=== PATIENT | male | born 1980 | race African-American/Black ===

== ENCOUNTER 2016-08-24 10:22 | Emergency (ER) | payer OTHER ==
[2016-08-24 10:42] VITALS: BP 143/98; PULSE 93; TEMP 98.2; BMI 34.4
[2016-08-24] MEDS ORDERED: ALBUTEROL SO4 6.7 GM HFA INHALER IH PRN (10:50)
--- NOTE | 2016-08-24 10:52 | PDOC ---
History of Present Illness - General Chief Complaint: Asthma Stated Complaint: ASTHMA, SOB Time Seen by Provider: 08/24/16 10:46 History Source: Patient Exam Limitations: No Limitations - History of Present Illness Initial Comments: CHIEF COMPLAINT: 36 y/o afebrile male with PMH asthma c/o chest tightness since last night. HISTORY OF PRESENT ILLNESS: He states this is always what he feels when his asthma is starting. He ran out of his albuterol inhaler and that's what he's here for. He states last night he was wheezing and that prevented him from sleeping. He denies f/c, n/v/d, cough, runny nose, SOB, abd pain, back pain. PCP is Dr. Maria Vital signs on arrival are notable for pulse of 93. REVIEW OF SYSTEMS: GENERAL/CONSTITUTIONAL: No fever/chills. No weakness. No weight change. HEAD, EYES, EARS, NOSE AND THROAT: No change in vision. No ear pain or discharge. No sore throat. CARDIOVASCULAR: +chest tightness. No shortness of breath. RESPIRATORY: +wheezing. No cough or hemoptysis. GASTROINTESTINAL: See history of present illness. GENITOURINARY: No dysuria, frequency, or change in urination. MUSCULOSKELETAL: No joint or muscle swelling or pain. No neck or back pain. SKIN: No rash or easy bruising. NEUROLOGIC: No headache, vertigo, loss of consciousness, or loss of sensation. PHYSICAL EXAM: GENERAL: The patient is awake, alert, and fully oriented, in no acute distress. He is very well appearing, ambulatory, speaks full sentences without difficulty. HEAD: Normal with no signs of trauma. ENT: Pupils equal, round and reactive to light, extraocular movements intact, sclera anicteric, conjunctiva clear. Neck supple. LUNGS: Clear to auscultation bilaterally. Normal excursion. No respiratory distress or use of accessory muscles. CV: RRR, S1/S2, no MRG. Cap refill < 2 sec. ABDOMEN: Soft, non-distended, non-tender even to deep palpation, no hepatomegaly or splenomegaly, no masses. EXTREMITIES: Normal range of motion, no edema. NEUROLOGICAL: Normal speech, normal gait. CN II-XII grossly intact. PSYCH: Normal mood, normal affect. SKIN: Warm, dry, normal turgor, no rashes or lesions noted. Past History - Past Medical History Allergies/Adverse Reactions: Allergies Allergy/AdvReac Type Severity Reaction Status Date / Time egg Allergy Verified 08/24/16 10:37 Home Medications: Ambulatory Orders Albuterol Sulfate Inhaler - [Ventolin HFA Inhaler -] 2 inh PO Q4H #1 inh Albuterol Sulfate Inhaler - [Ventolin HFA Inhaler -] 2 inh PO Q4H #1 inh Anemia: No Asthma: Yes Cancer: No Cardiac Disorders: No CVA: No COPD: No DVT: No Dementia: No Diabetes: No Dialysis: No GI Disorders: No Disorders: No HTN: No Hypercholesterolemia: No HIV: No Kidney Stones: No Liver Disease: No Psychiatric Problems: No Seizures: No Thyroid Disease: No Lung CA: No - Surgical History Abdominal Surgery: No Appendectomy: No Cardiac Surgery: No Cholecystectomy: No Gastric Stapling: No GI Surgery: No Lung Surgery: No Neurologic Surgery: No - Immunization History Td Vaccination: Yes TDAP Vaccination: No Immunization Up to Date: Yes - Psycho/Social/Smoking Cessation Hx Anxiety: No Suicidal Ideation: No Smoking Status: No Smoking History: Never smoked Years of Tobacco Use: 0 Have you smoked in the past 12 months: No Number of Cigarettes Smoked Daily: 0 If you are a former smoker, when did you quit?: 12 Cigars Per Day: 0 Information on smoking cessation initiated: No Hx Alcohol Use: No Drug/Substance Use Hx: No Substance Use Type: None Hx Substance Use Treatment: No Respiratory Specific PMHX - Complaint Specific PMHX Angina: No Bronchitis: No Pneumonia: No Pulmonary Embolus: No TB (Tuberculosis): No *Physical Exam - Vital Signs Last Vital Signs Temp Pulse Resp BP Pulse Ox 98.2 F 93 H 18 143/98 97 08/24/16 10:35 08/24/16 10:35 08/24/16 10:35 08/24/16 10:35 08/24/16 10:35 Medical Decision Making - Medical Decision Making A/P: 36 y/o male here for an albuterol inhaler. Will provide one from the pharmacy and d/c with an rx for one as well. Pt instructed to return to the ER with any worsening or concerning symptoms. The patient verbalizes understanding of all instructions, has no further questions and is awaiting discharge. *DC/Admit/Observation/Transfer Diagnosis at time of Disposition: Asthma Qualifiers: Asthma severity: unspecified severity Asthma complication type: with acute exacerbation Qualified Code(s): J45.901 - Unspecified asthma with (acute) exacerbation - Discharge Dispostion Disposition: HOME Condition at time of disposition: Good - Patient Instructions Printed Discharge Instructions: Asthma -- Adult Additional Instructions: Discharge Instructions: -A prescription for an additional albuterol inhaler has been sent to your pharmacy -Please follow up with Dr. Maria within 1 week -Return to the ER with any worsening or concerning symptoms
== END 2016-08-24 11:12 | disposition home or self-care (01) ==
LOC: JERFT 10:22
PROC: 3E0F7GC Introduction of Other Therapeutic Substance into Respiratory Tract, Via Natural or Artificial Opening (ICD-10-PCS; principal; 2016-08-24)
DX: J45.901 Unspecified asthma with (acute) exacerbation (principal)
CPT/HCPCS: 99281-25

== ENCOUNTER 2016-10-02 10:56 | Emergency (ER) | payer OTHER ==
[2016-10-02 11:10] VITALS: TEMP 98.3; BMI 33.0
--- NOTE | 2016-10-02 11:25 | PDOC ---
History of Present Illness - History of Present Illness Initial Comments: 10/02/16 11:31 The patient is a 36 year old male with significant past medical history of asthma who presents to the emergency department with a sudden onset of abdominal pain that started 2 hours ago. The patient was in a business meeting when his pain started. His pain is localized to the left upper quadrant and does not radiate. He states the pain is sharp and intermittent in severity. The patient states that he had food poisoning last week with nausea and diarrhea without vomiting. The patient denies any recent injury or trauma to his abdomen. The patient denies any alleviating or aggravating symptoms. He denies dysuria, hematuria, or frequency. He denies any sick contacts or recent travels. The patient reports feeling feverish but never took his temperature, he denies chills. He has a surgical history of back surgery. <Tiffanie Arora - Last Filed: 10/02/16 12:36> - General History Source: Patient Exam Limitations: No Limitations <Bea Pack - Last Filed: 10/03/16 13:08> - General Chief Complaint: Pain, Acute Stated Complaint: ABD PAIN Time Seen by Provider: 10/02/16 11:11 Past History <Tiffanie Arora - Last Filed: 10/02/16 12:36> - Past Medical History Anemia: No Asthma: Yes Cancer: No Cardiac Disorders: No CVA: No COPD: No DVT: No Dementia: No Diabetes: No Dialysis: No GI Disorders: No Disorders: No HTN: No Hypercholesterolemia: No HIV: No Kidney Stones: No Liver Disease: No Psychiatric Problems: No Seizures: No Thyroid Disease: No Lung CA: No - Surgical History Abdominal Surgery: No Appendectomy: No Cardiac Surgery: No Cholecystectomy: No Gastric Stapling: No GI Surgery: No Lung Surgery: No Neurologic Surgery: No - Immunization History Td Vaccination: Yes TDAP Vaccination: No Immunization Up to Date: Yes - Psycho/Social/Smoking Cessation Hx Anxiety: No Suicidal Ideation: No Smoking Status: No Smoking History: Never smoked Years of Tobacco Use: 0 Have you smoked in the past 12 months: No Number of Cigarettes Smoked Daily: 0 If you are a former smoker, when did you quit?: 12 Cigars Per Day: 0 Hx Alcohol Use: No Drug/Substance Use Hx: No Substance Use Type: None Hx Substance Use Treatment: No <Bea Pack - Last Filed: 10/03/16 13:08> - Past Medical History Allergies/Adverse Reactions: Allergies Allergy/AdvReac Type Severity Reaction Status Date / Time egg Allergy Verified 10/02/16 11:04 Home Medications: Ambulatory Orders Albuterol Sulfate Inhaler - [Ventolin HFA Inhaler -] 2 inh PO Q4H #1 inh Albuterol Sulfate Inhaler - [Ventolin HFA Inhaler -] 1 - 2 inh PO QID PRN #1 inhaler 10/02/16 Naproxen [Naprosyn -] 500 mg PO BID PRN #14 tablet 10/02/16 Oxycodone HCl/Acetaminophen [Percocet 5-325 mg Tablet] 1 tab PO BID PRN #6 tablet MDD 2 10/02/16 Tamsulosin HCl [Flomax] 0.4 mg PO HS #10 capsule 10/02/16 Review of Systems - Review of Systems Able to Perform ROS?: Yes Comments:: 10/02/16 11:31 GENERAL/CONSTITUTIONAL: No: fever, chills, weakness, loss of appetite. HEAD, EYES, EARS, NOSE AND THROAT: No: change in vision, ear pain, discharge, sore throat, throat swelling. CARDIOVASCULAR: No: chest pain, lightheadedness, palpitations, syncope RESPIRATORY: No: cough, shortness of breath, wheezing, hemoptysis, stridor. GASTROINTESTINAL: +Nausea, +abdominal pain. No: vomiting, abdominal cramping, rectal bleeding, constipation. GENITOURINARY: No: dysuria, hematuria, frequency, urgency, flank pain. MUSCULOSKELETAL: No: back pain, neck pain, joint pain, muscle swelling or pain SKIN AND BREASTS: No: lesions, pallor, rash or easy bruising. NEUROLOGIC: No: headache, vertigo, paresthesias, weakness ENDOCRINE: No: unexplained weight gain or loss HEMATOLOGIC/LYMPHATIC: No: anemia, easy bleeding, swelling nodes <Tiffanie Arora - Last Filed: 10/02/16 12:36> *Physical Exam - Vital Signs Last Vital Signs Temp Pulse Resp BP Pulse Ox 98.3 F 75 18 121/74 96 10/02/16 11:05 10/02/16 11:05 10/02/16 11:05 10/02/16 11:05 10/02/16 11:05 - Physical Exam Comments: 10/02/16 11:31 GENERAL: The patient is in no acute distress but appears uncomfortable. HEAD: Normal with no signs of trauma. EYES: PERRLA, EOMI, sclera anicteric, conjunctiva clear. ENT: Ears normal, nares patent, oropharynx clear without exudates. Moist mucous membranes. NECK: Normal range of motion, supple without lymphadenopathy, JVD, or masses. LUNGS: Breath sounds equal, clear to auscultation bilaterally. No wheezes, and no crackles. HEART: Regular rate and rhythm, normal S1 and S2 without murmur, rub or gallop. ABDOMEN: +LUQ tenderness to palpation with no voluntary guarding and no rebound. Soft, normoactive bowel sounds. EXTREMITIES: Normal range of motion, no edema. No clubbing or cyanosis. No erythema, or tenderness. NEUROLOGICAL: Cranial nerves II through XII grossly intact. Normal speech. No focal neurological deficits. MUSCULOSKELETAL: Back non-tender to palpation, no CVA tenderness SKIN: Warm, Dry, normal turgor, no rashes or lesions noted. <Tiffanie Arora - Last Filed: 10/02/16 12:36> - Vital Signs Last Vital Signs Temp Pulse Resp BP Pulse Ox 98.3 F 75 18 121/74 96 10/02/16 11:05 10/02/16 11:05 10/02/16 11:05 10/02/16 11:05 10/02/16 11:05 <Bea Pack - Last Filed: 10/03/16 13:08> ED Treatment Course - LABORATORY CBC & Chemistry Diagram: 10/02/16 12:04 10/02/16 12:04 <Tiffanie Arora - Last Filed: 10/02/16 12:36> - LABORATORY CBC & Chemistry Diagram: 10/02/16 12:04 10/02/16 12:04 <Bea Pack - Last Filed: 10/03/16 13:08> Medical Decision Making - Medical Decision Making 10/02/16 11:25 A portion of this note was documented by scribe services under my direction. I have reviewed the details of the note, within reason, and agree with the documentation with the following case summary and management plan written by me. Nursing documentation reviewed and incorporated into medical decision making 10/02/16 11:43 This is a 36 yo M presenting to the ER with severe abdominal pain and tenderness Pt states that his symptoms severely worsened over the past 2 hours He incidentally noted that last week he had "food poisoning", no vomiting, no diarrhea (pt has 2 stools per day) Pt states he had a fever last week, none today No recent travel No ill contacts Pt felt ill yesterday, had some tea that his grandmother made him [place] better yesterday night and this morning Today while in a meeting, his abdominal pain worsened significantly No dysuria, no hematuria 10/02/16 12:33 Laboratory Tests 10/02/16 10/02/16 12:04 12:04 WBC 5.2 D Hgb 14.9 Hct 44.6 Plt Count 227 D Neutrophils % 51.1 D Lymphocytes % 32.5 D Urine Blood 3+ H Urine Nitrite Negative Ur Leukocyte Esterase Negative 10/02/16 12:50 Laboratory Tests 10/02/16 12:04 Sodium 141 Potassium 3.9 Chloride 106 Carbon Dioxide 28 D BUN 12 D Creatinine 1.1 D Random Glucose 116 H Total Amylase 91 Lipase 122 10/02/16 14:46 CT demonstrates: mesenteric adenitis, recently passed Left kidney stone clinical Impression: kidney stone Pt requested that I give him prescription for Albuterol Will do so Pt asked to return to the ER for any other concerns or complaints <Bea Pack - Last Filed: 10/03/16 13:08> *DC/Admit/Observation/Transfer - Attestations Scribe Attestion: 10/02/16 11:31 Documentation prepared by Tiffanie Arora, acting as medical device engineer for Bea Pack MD. <Tiffanie Arora - Last Filed: 10/02/16 12:36> - Discharge Dispostion Admit: No <Bea Pack - Last Filed: 10/03/16 13:08> Diagnosis at time of Disposition: Kidney stone on left side - Discharge Dispostion Disposition: HOME Condition at time of disposition: Improved - Prescriptions Prescriptions: Tamsulosin HCl [Flomax] 0.4 mg PO HS #10 capsule Naproxen [Naprosyn -] 500 mg PO BID PRN #14 tablet PRN Reason: Pain Oxycodone HCl/Acetaminophen [Percocet 5-325 mg Tablet] 1 tab PO BID PRN #6 tablet MDD 2 PRN Reason: Severe Pain Albuterol Sulfate Inhaler - [Ventolin HFA Inhaler -] 1 - 2 inh PO QID PRN #1 inhaler PRN Reason: Wheezing - Referrals Referrals: Yolanda Maria MD [Primary Care Provider] - - Patient Instructions Printed Discharge Instructions: DI for Kidney Stones, Kidney Stones -- Adult Additional Instructions: Rosalio, Thank you for coming to the ER today Please follow up with Dr Maria in the office If you develop more pain, please come to the ER for re evaluation Take medications ONLY if you have recurrent abdominal pain - Post Discharge Activity Work/School Note: Back to Work
[2016-10-02] MEDS ORDERED: SODIUM CHLORIDE 1,000 ML IV STA (11:26)
[2016-10-02] MEDS ORDERED: morphine CARPU-JECT 4 MG/1 ML DISP.SYRIN IVPUSH ONE (11:27)
[2016-10-02] MEDS ORDERED: FAMOTIDINE 20 MG/50 ML IVPB 50 ML IVPB ONE ×2 (11:27→11:39)
[2016-10-02] MEDS ORDERED: ONDANSETRON 4 MG/2 ML VIAL IVPB ONE (11:27)
[2016-10-02] MEDS ORDERED: morphine CARPU-JECT 4 MG/1 ML DISP.SYRIN ONE (11:38)
[2016-10-02] MEDS ORDERED: ONDANSETRON 4 MG/2 ML VIAL ONE (11:39)
[2016-10-02] MEDS ORDERED: HYDROmorphone HCL CARPU-JECT 1 MG/1 ML DISP.SYRIN IVPB ONE (12:11)
[2016-10-02 12:13] LABS: BASOPHIL 0.9 % (0-2.0); EOSINOPHIL 3.3 % (0-4.5); MCH 31.3 pg (25.7-33.7); MCHC 33.3 g/dl (32.0-35.9); MEAN PLT VOLUME 8.4 fl (7.5-11.1); NEUTROPHILS 51.1 % (42.8-82.8); PLATELET COUNT 227 K/MM3 (134-434); RDW 13.2 % (11.9-15.9); WHITE BLOOD COUNT 5.2 K/mm3 (4.0-10.0)
[2016-10-02 12:15] LABS: URINE APPEARANCE SLCLOUDY; URINE BILIRUBIN NEGATIVE (NEGATIVE); URINE COLOR YELLOW; URINE GLUCOSE (UA) NEGATIVE (NEGATIVE); URINE KETONE NEGATIVE (NEGATIVE); URINE LEUK ESTERASE NEGATIVE (NEGATIVE); URINE NITRITE NEGATIVE (NEGATIVE); URINE UROBILINOGEN NEGATIVE E.U./dl (0.2-1.0)
[2016-10-02] MEDS ORDERED: HYDROmorphone HCL CARPU-JECT 1 MG/1 ML DISP.SYRIN ONE (12:18)
[2016-10-02 12:20] LABS: URINE BLOOD 3+ (NEGATIVE); URINE PROTEIN 1+ (NEGATIVE)
[2016-10-02 12:29] LABS: URINE MUCUS FEW; URINE RBC 597 /hpf (0-3); URINE WBC 1 /hpf (3-5)
[2016-10-02 12:42] LABS: ALBUMIN 3.8 g/dl (3.4-5.0); AMYLASE 91 U/L (25-115); ANION GAP 7 (8-16); CALCIUM 8.8 mg/dL (8.5-10.1); CO2 28 mmol/L (21-32); CREATININE 1.1 mg/dL (0.7-1.3); GLUCOSE,RANDOM 116 mg/dL (74-106); SGOT/AST 22 U/L (15-37); SGPT/ALT 40 U/L (12-78)
[2016-10-02 12:44] LABS: ALK PHOS 74 U/L (45-117); BILIRUBIN,TOTAL 0.5 mg/dL (0.2-1.0); TOT PROT 6.9 g/dl (6.4-8.2)
[2016-10-02] MEDS ORDERED: KETOROLAC TROMETHAMINE 30 MG/1 ML VIAL IVPUSH ONE (14:04)
[2016-10-02 14:45] VITALS: BP 120/73; PULSE 78
== END 2016-10-02 15:19 | disposition home or self-care (01) ==
LOC: JER 10:56
PROC: 3E033GC Introduction of Other Therapeutic Substance into Peripheral Vein, Percutaneous Approach (ICD-10-PCS; principal; 2016-10-02)
PROC: 3E033NZ Introduction of Analgesics, Hypnotics, Sedatives into Peripheral Vein, Percutaneous Approach (ICD-10-PCS; 2016-10-02)
PROC: 3E0337Z Introduction of Electrolytic and Water Balance Substance into Peripheral Vein, Percutaneous Approach (ICD-10-PCS; 2016-10-02)
DX: N23 Unspecified renal colic (principal); J45.909 Unspecified asthma, uncomplicated; Z87.891 Personal history of nicotine dependence
CPT/HCPCS: 36415; 74176-TC; 80053; 81003; 81015; 82150; 83690; 85025; 87086; 96361; 96365; 96375; 99283-25; Q9967

== ENCOUNTER 2017-03-05 22:37 | Emergency (ER) | payer OTHER ==
[2017-03-05 23:24] VITALS: BP 149/95; PULSE 90; TEMP 98.1; BMI 30.1
[2017-03-05] MEDS ORDERED: FLUORESCEIN NA 1 EA STRIP ONE (23:50)
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
--- NOTE | 2017-03-06 00:33 | PDOC ---
*Physical Exam - Vital Signs Last Vital Signs Temp Pulse Resp BP Pulse Ox 98.1 F 90 16 149/95 95 03/05/17 23:09 03/05/17 23:09 03/05/17 23:09 03/05/17 23:09 03/05/17 23:09 Medical Decision Making - Medical Decision Making 03/06/17 00:33 agree with care from ADMISSIONS COORDINATOR Fatoumata *DC/Admit/Observation/Transfer Diagnosis at time of Disposition: Corneal abrasion Qualifiers: Encounter type: initial encounter Laterality: left Qualified Code(s): S05.02XA - Injury of conjunctiva and corneal abrasion without foreign body, left eye, initial encounter - Prescriptions Prescriptions: Erythromycin 0.5% Eye Ointment [Erythromycin 0.5% Eye Ointment -] 1 applic OD TID #1 tube - Referrals Referrals: Yolanda Maria MD [Primary Care Provider] - Ruel Mon MD [Staff Physician] - - Patient Instructions Printed Discharge Instructions: DI for Corneal Abrasion Additional Instructions: Please use medication as prescribed. As discussed, if you continue feeling discomfort in your eyes for more than 2-3 days, please follow up with ophthalmology for further evaluation. If you experience any sudden loss of vision, increased pain or swelling to your eyes, or any new or worsening symptoms, please return to the ER. - Post Discharge Activity
== END 2017-03-06 00:31 | disposition home or self-care (01) ==
LOC: JER 22:37
DX: S05.02XA Injury of conjunctiva and corneal abrasion without foreign body, left eye, initial encounter (principal); X58.XXXA Exposure to other specified factors, initial encounter; Y93.89 Activity, other specified; Y92.9 Unspecified place or not applicable; Z87.891 Personal history of nicotine dependence; J45.909 Unspecified asthma, uncomplicated
CPT/HCPCS: 99281-25

== ENCOUNTER 2017-08-26 20:22 | Emergency (ER) | payer SELFPAY ==
--- NOTE | 2017-08-26 20:41 | PDOC ---
History of Present Illness <Lin Albarran - Last Filed: 08/26/17 21:35> <Maye Harrell - Last Filed: 08/27/17 00:21> - General Stated Complaint: PALPITATIONS Time Seen by Provider: 08/26/17 20:39 - History of Present Illness Initial Comments: 08/26/17 21:36 The patient is a 37 year old male, with a significant past medical history of asthma, HTN (noncompliant w/ meds) who presents to the emergency department with palpitations 2 hours before he arrived to the ER. Patient states he began feeling like his heart was racing so her called 911. He admits to associated shortness of breath. He denies any recent fevers, chills, headache or dizziness. He denies any recent nausea, vomit, diarrhea or constipation. He denies any recent dysuria, frequency, urgency or hematuria. Allergies: eggs Past surgical history: None reported. Social History: Nonsmoker. Denies EtOH use and recreational drug use. Primary Care Physician: Yolanda Maria (Lin Albarran) Past History <Lin Albarran - Last Filed: 08/26/17 21:35> - Past Medical History Anemia: No Asthma: Yes Cancer: No Cardiac Disorders: No CVA: No COPD: No DVT: No Dementia: No Diabetes: No Dialysis: No GI Disorders: No Disorders: No HTN: No Hypercholesterolemia: No Kidney Stones: No Liver Disease: No Psychiatric Problems: No Seizures: No Thyroid Disease: No Lung CA: No - Surgical History Abdominal Surgery: No Appendectomy: No Cardiac Surgery: No Cholecystectomy: No Gastric Stapling: No GI Surgery: No Lung Surgery: No Neurologic Surgery: No - Immunization History Td Vaccination: Yes TDAP Vaccination: No Immunization Up to Date: Yes - Suicide/Smoking/Psychosocial Hx Smoking Status: No Smoking History: Never smoked Years of Tobacco Use: 0 Have you smoked in the past 12 months: No Number of Cigarettes Smoked Daily: 0 If you are a former smoker, when did you quit?: 12 Cigars Per Day: 0 Hx Alcohol Use: No Drug/Substance Use Hx: No Substance Use Type: None Hx Substance Use Treatment: No <Maye Harrell - Last Filed: 08/27/17 00:21> - Past Medical History Allergies/Adverse Reactions: Allergies Allergy/AdvReac Type Severity Reaction Status Date / Time egg Allergy Verified 03/05/17 23:14 Home Medications: Ambulatory Orders Albuterol Sulfate Inhaler - [Ventolin HFA Inhaler -] 2 inh PO Q4H #1 inh Budesonide/Formeterol Fumarate [SYMBICORT 160/4.5mcg -] 1 inh PO DAILY 03/05/17 Cardiac Specific PMH - Complaint Specific PMHX Angina: No Pulmonary Embolus: No <Maye Harrell - Last Filed: 08/27/17 00:21> Review of Systems <Lin Albarran - Last Filed: 08/26/17 21:35> <Maye Harrell - Last Filed: 08/27/17 00:21> - Review of Systems Comments:: 08/26/17 21:40 CONSTITUTIONAL: Absent: fever, no chills, no fatigue EYES: Absent: visual changes ENT: Absent: ear pain, no sore throat CARDIOVASCULAR: Present: palpitations Absent: chest pain RESPIRATORY: Present: SOB Absent: cough GI: Absent: abdominal pain, no nausea, no vomiting, no constipation, no diarrhea GENITOURINARY: Absent: dysuria, no frequency, no hematuria MUSCULOSKELETAL: Absent: back pain, no arthralgia, no myalgia SKIN: Absent: rash NEURO: Absent: headache (Lin Albarran) *Physical Exam <Lin Albarran - Last Filed: 08/26/17 21:35> <Maye Harrell - Last Filed: 08/27/17 00:21> - Vital Signs Last Vital Signs Temp Pulse Resp BP Pulse Ox 98.5 F 90 18 131/85 97 08/26/17 20:49 08/26/17 23:36 08/26/17 23:36 08/26/17 23:36 08/26/17 23:36 - Physical Exam Comments: 08/26/17 21:41 GENERAL: Well-appearing, well-nourished. No apparent distress. HEENT: Normocephalic, atraumatic. PERRL, EOM intact. CARDIOVASCULAR: Tachycardic. Normal S1, S2. Regular rate. PULMONARY: Clear to auscultation bilaterally. ABDOMEN: Soft, non-distended, non-tender. EXTREMITIES: Normal ROM in all four extremities. No gross deformities. SKIN: Warm, dry. No rash NEUROLOGICAL: No focal neurological deficits. (Lin Albarran) ED Treatment Course - LABORATORY CBC & Chemistry Diagram: 08/26/17 21:28 08/26/17 21:28 <Lin Albarran - Last Filed: 08/26/17 21:35> - LABORATORY CBC & Chemistry Diagram: 08/26/17 21:28 08/26/17 21:28 <Maye Harrell - Last Filed: 08/27/17 00:21> - ADDITIONAL ORDERS Additional order review: Laboratory Results 08/26/17 08/26/17 21:28 21:28 PT with INR 11.20 INR 0.99 Sodium 143 Potassium 3.6 Chloride 109 H Carbon Dioxide 27 Anion Gap 7 L BUN 11 Creatinine 0.9 Creat Clearance w eGFR > 60 Random Glucose 86 D Calcium 8.5 Magnesium 2.2 Total Bilirubin 0.3 D AST 10 L D ALT 27 D Alkaline Phosphatase 77 Creatine Kinase 255 Troponin I < 0.02 B-Natriuretic Peptide 8.50 Total Protein 7.1 Albumin 3.7 08/26/17 21:28 RBC 4.51 MCV 95.7 MCHC 33.7 RDW 13.4 MPV 8.8 Neutrophils % 60.7 Lymphocytes % 26.2 Monocytes % 10.0 Eosinophils % 1.7 Basophils % 1.4 - RADIOLOGY Radiology Studies Ordered: Category Date Time Status CHEST X-RAY PORTABLE* [RAD] Stat Radiology 08/26/17 20:43 Taken - Medications Given in the ED: ED Medications Discontinued Medications Generic Name Dose Route Start Last Admin Trade Name Freq PRN Reason Stop Dose Admin Aspirin 162 mg 08/26/17 20:42 08/26/17 21:11 Asa - PO 08/26/17 20:43 162 mg ONCE ONE Administration Metoprolol Tartrate 25 mg 08/26/17 22:43 08/26/17 23:36 Lopressor - PO 08/26/17 22:44 25 mg ONCE ONE Administration *DC/Admit/Observation/Transfer <Lin Albarran - Last Filed: 08/26/17 21:35> <Maye Harrell - Last Filed: 08/27/17 00:21> Diagnosis at time of Disposition: Palpitations - Discharge Dispostion Disposition: AGAINST MEDICAL ADVICE - Referrals Referrals: Yolanda Maria MD [Primary Care Provider] - - Patient Instructions - Post Discharge Activity - Attestations Scribe Attestion: 08/26/17 21:41 Documentation prepared by Lin Albarran, acting as medical artist for Maye Harrell MD. (Deion,Lin)
[2017-08-26] MEDS ORDERED: ASPIRIN 81 MG CHEWABLE TABLETS PO ONE (20:42)
[2017-08-26 20:51] VITALS: TEMP 98.5; BMI 32.3
[2017-08-26] MEDS ORDERED: ASPIRIN 81 MG CHEWABLE TABLETS ONE (21:00)
[2017-08-26 21:35] LABS: BASO % 1.4 % (0-2.0); EOS % 1.7 % (0-4.5); HEMATOCRIT 43.1 % (35.4-49); HEMOGLOBIN 14.5 GM/dL (11.7-16.9); LYMPH % 26.2 % (8-40); MCH 32.2 pg (25.7-33.7); MCHC 33.7 g/dl (32.0-35.9); MEAN CELL VOLUME 95.7 fl (80-96); MEAN PLT VOLUME 8.8 fl (7.5-11.1); NEUT % 60.7 % (42.8-82.8); PLATELET COUNT 195 K/MM3 (134-434); RBC 4.51 M/mm3 (4.00-5.60); RDW 13.4 % (11.9-15.9); WHITE BLOOD COUNT 6.2 K/mm3 (4.0-10.0)
[2017-08-26 22:04] LABS: INR 0.99 (0.82-1.09); PROTHROMBIN TIME (PATIENT) 11.2 SEC (9.98-11.88)
[2017-08-26 22:15] LABS: ALBUMIN 3.7 g/dl (3.4-5.0); ANION GAP 7 (8-16); BILIRUBIN,TOTAL 0.3 mg/dL (0.2-1.0); BLOOD UREA NITROGEN 11 mg/dL (7-18); CALCIUM 8.5 mg/dL (8.5-10.1); CHLORIDE 109 mmol/L (98-107); CO2 27 mmol/L (21-32); CREATININE 0.9 mg/dL (0.7-1.3); GLUCOSE,RANDOM 86 mg/dL (74-106); MAGNESIUM 2.2 mg/dL (1.8-2.4); POTASSIUM 3.6 mmol/L (3.5-5.1); SGOT/AST 10 U/L (15-37); SGPT/ALT 27 U/L (12-78); SODIUM 143 mmol/L (136-145); TOT PROT 7.1 g/dl (6.4-8.2)
[2017-08-26 22:17] LABS: ALK PHOS 77 U/L (45-117)
[2017-08-26] MEDS ORDERED: METOPROLOL TARTRATE 25 MG TABLET (FP) PO ONE (22:43)
[2017-08-26] MEDS ORDERED: METOPROLOL TARTRATE 25 MG TABLET (FP) ONE (23:34)
[2017-08-26 23:38] VITALS: BP 131/85; PULSE 90
--- NOTE | 2017-08-27 09:31 | EKG ---
Test Reason : Blood Pressure : / mmHG Vent. Rate : 109 BPM Atrial Rate : 109 BPM P-R Int : 190 ms QRS Dur : 086 ms QT Int : 340 ms P-R-T Axes : 062 047 019 degrees QTc Int : 457 ms SINUS TACHYCARDIA NONSPECIFIC T WAVE ABNORMALITY ABNORMAL ECG NO PREVIOUS ECGS AVAILABLE Confirmed by OMID MOREL, RODOLFO ([id number]) on 08/27/2017 9:31:13 AM Referred By: Confirmed By:RODOLFO ANNE MD
== END 2017-08-27 00:33 | disposition left against medical advice (07) ==
LOC: JER 20:22
DX: R00.2 Palpitations (principal); I10 Essential (primary) hypertension; J45.909 Unspecified asthma, uncomplicated; Z91.14 Patient's other noncompliance with medication regimen
CPT/HCPCS: 36415; 71045-TC; 80053; 82550; 82553; 83735; 83880; 84484; 85025; 85610; 93005; 93010; 99284-25

== ENCOUNTER 2019-02-21 15:36 | Emergency (ER) | payer OTHER ==
[2019-02-21 15:53] VITALS: BP 126/81; PULSE 97; TEMP 98.4; BMI 32.3
--- NOTE | 2019-02-21 16:20 | PDOC ---
History of Present Illness - General Chief Complaint: Injury Stated Complaint: HEAD INJURY Time Seen by Provider: 02/21/19 16:02 - History of Present Illness Initial Comments: 02/21/19 16:16 38-year-old male with a past medical history significant for hypertension and asthma presents for evaluation of a head injury. He states he was working out and a U bar hit him in the head. He has no postinjury nausea vomiting or visual changes only localized discomfort to the area. Past History - Past Medical History Allergies/Adverse Reactions: Allergies Allergy/AdvReac Type Severity Reaction Status Date / Time egg Allergy Verified 02/21/19 15:48 Home Medications: Ambulatory Orders Albuterol Sulfate Inhaler - [Ventolin HFA Inhaler -] 2 inh PO Q4H #1 inh Budesonide/Formeterol Fumarate [SYMBICORT 160/4.5mcg -] 1 inh PO DAILY 03/05/17 Anemia: No Asthma: Yes Cancer: No Cardiac Disorders: No CVA: No COPD: No DVT: No Dementia: No Diabetes: No Dialysis: No GI Disorders: No Disorders: No HTN: No Hypercholesterolemia: No Kidney Stones: No Liver Disease: No Psychiatric Problems: No Seizures: No Thyroid Disease: No Lung CA: No - Surgical History Abdominal Surgery: No Appendectomy: No Cardiac Surgery: No Cholecystectomy: No Gastric Stapling: No GI Surgery: No Lung Surgery: No Neurologic Surgery: No - Immunization History Td Vaccination: Yes TDAP Vaccination: No Immunization Up to Date: Yes - Suicide/Smoking/Psychosocial Hx Smoking Status: No Smoking History: Never smoked Years of Tobacco Use: 0 Have you smoked in the past 12 months: No Number of Cigarettes Smoked Daily: 0 If you are a former smoker, when did you quit?: 12 Cigars Per Day: 0 Hx Alcohol Use: No Drug/Substance Use Hx: No Substance Use Type: None Hx Substance Use Treatment: No Review of Systems - Review of Systems HEENTM: No: Recent change in vision ABD/GI: No: Nausea, Vomiting Neurological: No: Headache *Physical Exam - Vital Signs Last Vital Signs Temp Pulse Resp BP Pulse Ox 98.4 F 97 H 20 126/81 96 02/21/19 15:49 02/21/19 15:49 02/21/19 15:49 02/21/19 15:49 02/21/19 15:49 - Physical Exam Comments: 02/21/19 16:17 HEAD: NC; there is a small hematoma at the left frontal scalp at the site of the injury. There is no break in skin abrasion or step-offs. The area is minimally tender. EYES: Conjuntiva clear Ears: Canals and TM's normal NOSE: No d/c THROAT: Moist mucous membrances, oral pharanx clear, uvula midline NECK: Supple without adenopathy CARDIAC: S1 S2 LUNGS: CTA Full and Equal breath sounds ABDOMEN: Soft NT ND MS: Full ROM in all joints without edema NEUROLOGIC: No gross sensory or motor deficits, NVID; negative Romberg SKIN: Normal color and temperature no lesions or rashes Medical Decision Making - Medical Decision Making 02/21/19 16:19 38-year-old male with low velocity trauma presents for evaluation. He has no post concussive symptoms. Superficial contusion to the scalp he may follow-up with his primary care physician if needed. No restrictions on activity. *DC/Admit/Observation/Transfer Diagnosis at time of Disposition: Contusion of scalp - Discharge Dispostion Disposition: HOME Condition at time of disposition: Stable Decision to Admit order: No - Referrals Referrals: Eladia Campa MD [Staff Physician] - - Patient Instructions Additional Instructions: Tylenol and Motrin as directed for any discomfort. He may apply ice to the area. Return to the emergency room should you've experience any symptoms such as headache nausea vomiting or visual changes. Otherwise you have no restriction in activity. He may follow-up with primary care physician in one to 2 days for further evaluation and treatment options should she feel the need. But again if you develop any symptoms such as headache nausea vomiting or visual changes immediately return to the emergency room. - Post Discharge Activity
== END 2019-02-21 16:21 | disposition home or self-care (01) ==
LOC: JERFT 15:36
DX: S00.03XA Contusion of scalp, initial encounter (principal); X58.XXXA Exposure to other specified factors, initial encounter; Y93.89 Activity, other specified; Y92.89 Other specified places as the place of occurrence of the external cause; Z87.891 Personal history of nicotine dependence; I10 Essential (primary) hypertension; J45.909 Unspecified asthma, uncomplicated
CPT/HCPCS: 99281-25

== ENCOUNTER 2019-07-30 21:39 | Emergency (ER) | payer OTHER ==
[2019-07-30 21:43] VITALS: BP 151/82; PULSE 95; TEMP 97.4; BMI 32.3
[2019-07-30] MEDS ORDERED: ALBUTEROL SO4 2.5/IPRATROPIUM 0.5 INH SOL 3 ML VIAL.NEB. NEB ONE (22:25)
[2019-07-30] MEDS ORDERED: DEXAMETHASONE LIQUID 0.5 MG/5 ML PO ONE (22:25)
--- NOTE | 2019-07-30 22:44 | PDOC ---
History of Present Illness - General Chief Complaint: Allergic Reaction Stated Complaint: ALLERGY REACTION Time Seen by Provider: 07/30/19 21:49 History Source: Patient Exam Limitations: No Limitations Past History - Travel Traveled outside of the country in the last 30 days: No Close contact w/someone who was outside of country & ill: No - Past Medical History Allergies/Adverse Reactions: Allergies Allergy/AdvReac Type Severity Reaction Status Date / Time egg Allergy Verified 07/30/19 21:43 Home Medications: Ambulatory Orders Albuterol Sulfate Inhaler - [Ventolin HFA Inhaler -] 2 inh PO Q4H #1 inh Budesonide/Formeterol Fumarate [SYMBICORT 160/4.5mcg -] 1 inh PO DAILY 03/05/17 Epinephrine [Epipen 2-Nicko] 0.3 mg IJ ASDIR #1 kit 07/30/19 Anemia: No Asthma: Yes Cancer: No Cardiac Disorders: No CVA: No COPD: No DVT: No Dementia: No Diabetes: No Dialysis: No GI Disorders: No Disorders: No HTN: Yes Hypercholesterolemia: No Kidney Stones: No Liver Disease: No Psychiatric Problems: No Seizures: No Thyroid Disease: No Lung CA: No - Surgical History Abdominal Surgery: No Appendectomy: No Cardiac Surgery: No Cholecystectomy: No Gastric Stapling: No GI Surgery: No Lung Surgery: No Neurologic Surgery: No - Immunization History Td Vaccination: Yes TDAP Vaccination: No Immunization Up to Date: Yes - Psycho Social/Smoking Cessation Hx Smoking Status: No Smoking History: Never smoked Years of Tobacco Use: 0 Have you smoked in the past 12 months: No Number of Cigarettes Smoked Daily: 0 If you are a former smoker, when did you quit?: 12 Cigars Per Day: 0 Hx Alcohol Use: No Drug/Substance Use Hx: No Substance Use Type: None Hx Substance Use Treatment: No Review of Systems - Review of Systems Able to Perform ROS?: Yes Comments:: 07/30/19 22:39 CONSTITUTIONAL: Absent: fever, chills, diaphoresis, generalized weakness, malaise, loss of appetite HEENT: Absent: rhinorrhea, nasal congestion, throat pain, throat swelling, difficulty swallowing, mouth swelling, ear pain, eye pain, visual Changes CARDIOVASCULAR: Absent: chest pain, loss of consciousness, palpitations, irregular heart rate, peripheral edema RESPIRATORY: Present: Shortness of breath Absent: cough, dyspnea with exertion, orthopnea, wheezing, stridor, hemoptysis GASTROINTESTINAL: Absent: abdominal pain, abdominal distension, nausea, vomiting, diarrhea, constipation, melena, hematochezia SKIN: Absent: rash, itching, pallor NEUROLOGIC: Absent: headache, focal weakness or paresthesias, dizziness, unsteady gait, seizure, mental status changes, bladder or bowel incontinence PSYCHIATRIC: Absent: anxiety, depression, suicidal or homicidal ideation, hallucinations. Is the patient limited Romanian proficient: No *Physical Exam - Vital Signs Last Vital Signs Temp Pulse Resp BP Pulse Ox 97.4 F L 95 H 18 151/82 96 07/30/19 21:41 07/30/19 21:41 07/30/19 21:41 07/30/19 21:41 07/30/19 21:41 - Physical Exam 07/30/19 22:42 GENERAL: Well developed, well nourished. Awake and alert. No acute distress. HEENT: Normocephalic, atraumatic. PERRLA, EOMI. No conjunctival pallor. Sclera are non- icteric. Moist mucous membranes. Oropharynx is clear. NECK: Supple. Full ROM. No JVD. Carotid pulses 2+ and symmetric, without bruits. No thyromegaly. No lymphadenopathy. CARDIOVASCULAR: Regular rate and rhythm. No murmurs, rubs, or gallops. Distal pulses are 2+ and symmetric. PULMONARY: No evidence of respiratory distress. Lungs clear to auscultation bilaterally, with good aeration to the bases, tightness at the apices. No wheezing, rales or rhonchi. SKIN: Warm and dry. Normal capillary refill. No rashes. No jaundice. NEUROLOGICAL: Alert, awake, appropriate. Cranial nerves 2-12 intact. No deficits to light touch and temperature in face, upper extremities and lower extremities. No motor deficits in the in face, upper extremities and lower extremities. Normoreflexic in the upper and lower extremities. Normal speech. Toes are down- going bilaterally. Gait is normal without ataxia. PSYCHIATRIC: Cooperative. Good eye contact. Appropriate mood and affect. 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 Patient states he was eating at [employer] when he noticed he suddenly became short of breath after eating a chicken sandwich. He was unsure if this was his allergies or his asthma so he took both Benadryl and his albuterol inhaler prior to arrival in the ER. He states that his symptoms improved after the medication however he was still nervous about his allergy so he came to the ER for evaluation. Denies difficulty breathing, wheezing, tightness in his throat, tongue swelling, nausea, vomiting and diarrhea. A/P: Allergic reaction On exam the apices of the lungs are tight. No wheezing noted. Oropharynx is without edema. DuoNeb and Decadron given with relief of symptoms. No rash noted Send an EpiPen to the patient's pharmacy as he had a previous anaphylactic shock from eggs and he does not have an EpiPen at this time. Return precautions given. Discharge home I discussed the physical exam findings, ancillary test results and final diagnoses with the patient. I answered all of the patient's questions. The patient was satisfied with the care received and felt comfortable with the discharge plan and treatment plan. The Patient agrees to follow up with the primary care physician/specialist within 24-72 hours. Return precautions were given. Discharge - Discharge Information Problems reviewed: Yes Clinical Impression/Diagnosis: Allergic reaction Qualifiers: Encounter type: initial encounter Qualified Code(s): T78.40XA - Allergy, unspecified, initial encounter Condition: Stable Disposition: HOME - Admission No - Additional Discharge Information Prescriptions: Epinephrine [Epipen 2-Nicko] 0.3 mg IJ ASDIR #1 kit - Follow up/Referral Referrals: Yolanda Maria MD [Primary Care Provider] - - Patient Discharge Instructions Patient Printed Discharge Instructions: DI for General Allergic Reactions Additional Instructions: Your shortness of breath is most likely due to an allergic reaction today. Please take Benadryl every 8 hours as needed for chest tightness for the next 24 hours You received a DuoNeb and a long-acting steroid in the emergency department. An EpiPen was sent to your pharmacy. Should you experience tongue swelling, difficulty breathing after eating foods, or throat tightness please use the EpiPen Follow-up with your primary care doctor this week. Return to the ER for increased difficulty breathing despite treatment, hives, throat tightening or if you have any changes in your symptoms. - Post Discharge Activity Work/Back to School Note: Back to Work
== END 2019-07-30 22:58 | disposition home or self-care (01) ==
LOC: JERFT 21:39
PROC: 3E0F7GC Introduction of Other Therapeutic Substance into Respiratory Tract, Via Natural or Artificial Opening (ICD-10-PCS; principal; 2019-07-30)
DX: T78.40XA Allergy, unspecified, initial encounter (principal); Z91.018 Allergy to other foods; J45.909 Unspecified asthma, uncomplicated; I10 Essential (primary) hypertension
CPT/HCPCS: 99281-25

== ENCOUNTER 2021-11-25 14:51 | Emergency (ER) | payer OTHER ==
[2021-11-25 15:02] VITALS: BP 126/80; PULSE 87; TEMP 97.5; BMI 27.9
== END 2021-11-25 17:14 | disposition home or self-care (01) ==
LOC: JERFT 14:51 → JER 14:51 → JERFT 17:14
DX: L98.8 Other specified disorders of the skin and subcutaneous tissue (principal)
CPT/HCPCS: 76536-TC; 99283-25

== ENCOUNTER 2021-12-21 07:14 | Emergency (ER) | payer OTHER ==
[2021-12-21 07:34] VITALS: BMI 31.5
[2021-12-21 08:07] LABS: EOS % 2.5 % (0-4.5); HEMATOCRIT 44.7 % (35.4-49); HEMOGLOBIN 15.5 GM/dL (11.7-16.9); MCH 31.7 pg (25.7-33.7); MCHC 34.7 g/dl (32.0-35.9); MEAN CELL VOLUME 91.4 fl (80-96); MEAN PLT VOLUME 9.1 fl (7.5-11.1); MONO % 8.8 % (3.8-10.2); NEUT % 56.7 % (42.8-82.8); PLATELET COUNT 208 10^3/uL (134-434); RBC 4.89 M/mm3 (4.00-5.60); RDW 13.7 % (11.9-15.9)
[2021-12-21 08:22] LABS: CHLORIDE 102 mmol/L (98-107); SODIUM 135 mmol/L (136-145)
[2021-12-21 08:25] LABS: ALBUMIN 4.2 g/dl (3.4-5.0); ANION GAP 8 MMOL/L (8-16); BLOOD UREA NITROGEN 13.1 mg/dL (7-18); CALCIUM 9.5 mg/dL (8.5-10.1); CO2 25 mmol/L (21-32); GLUCOSE,RANDOM 122 mg/dL (74-106); MAGNESIUM 2.4 mg/dL (1.8-2.4)
[2021-12-21 08:28] LABS: CREATININE 0.9 mg/dL (0.55-1.3); SGOT/AST 20 U/L (15-37); SGPT/ALT 38 U/L (13-61)
[2021-12-21 08:30] LABS: BILIRUBIN,TOTAL 0.5 mg/dL (0.2-1); TOT PROT 7.8 g/dl (6.4-8.2)
[2021-12-21 08:31] LABS: ALK PHOS 68 U/L (45-117)
[2021-12-21 09:05] VITALS: BP 141/79; PULSE 82; TEMP 98
[2021-12-22 12:09] LABS: SARS-CoV-2 NAA Not Detected (Not Detected)
== END 2021-12-21 08:48 | disposition home or self-care (01) ==
LOC: JER 07:14
DX: R00.2 Palpitations (principal)
CPT/HCPCS: 36415; 71046-TC-FY; 80053; 82550; 82553; 83735; 84439; 84443; 84484; 85025; 93005; 93010; 99285-25; C9803-CS; U0003; U0005

== ENCOUNTER 2022-03-20 11:54 | Emergency (ER) | payer OTHER ==
[2022-03-20 12:06] VITALS: BP 134/87; PULSE 94; RESP 17; TEMP 97.8; BMI 33.2
[2022-03-20] MEDS ORDERED: SODIUM CHLORIDE 0.9% 500 ML INFUS.BAG IV ONE (13:23)
[2022-03-20] MEDS ORDERED: METOCLOPRAMIDE HCL INJECTION 10 MG/2 ML VIAL IVPUSH ONE ×2 (13:23→14:50)
[2022-03-20] MEDS ORDERED: KETOROLAC TROMETHAMINE 30 MG/1 ML VIAL IVPUSH ONE (13:23)
[2022-03-20] MEDS ORDERED: METOCLOPRAMIDE HCL INJECTION 10 MG/2 ML VIAL ONE ×2 (13:38→14:54)
[2022-03-20] MEDS ORDERED: KETOROLAC TROMETHAMINE 30 MG/1 ML VIAL ONE (13:38)
[2022-03-20] MEDS ORDERED: ACETAMINOPHEN 1000 MG/100 ML BAG IVPB ONE (14:50)
[2022-03-20] MEDS ORDERED: ACETAMINOPHEN INJECTION 100 ML IVPB ONE (14:55)
== END 2022-03-20 17:27 | disposition home or self-care (01) ==
LOC: JERFT 11:54
PROC: 3E033GC Introduction of Other Therapeutic Substance into Peripheral Vein, Percutaneous Approach (ICD-10-PCS; principal; 2022-03-20)
DX: R51.9 Headache, unspecified (principal)
CPT/HCPCS: 99284-25